=== PATIENT | male | born 1960 | race Caucasian/White ===

== ENCOUNTER → 2016-07-02 | Day surgery (SDC) | payer BC ==
[2016-06-27 11:48] VITALS: Ht 200.7 cm; Wt 104.5 kg
[~2016-07-02] VITALS: Ht 200.7 cm; Wt 104.5 kg
[~2016-07-02] MED LIST: GLYBURIDE PO; LIDOCAINE HCL 2% 2 ML VIAL (20MG/ML) ONE; LISI-729 PO; METFORMIN PO; PROPOFOL IV EMULSION 10 MG/ML 20 ML VIAL IV ONE; SODIUM CHLORIDE 0.9% 500ML 500 ML IV ONE
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
--- NOTE | 2016-07-02 14:04 | Discharge Instructions ---
Endoscopy Patient Instructions Date / Procedure(s) Performed July 02, 2016. Colonoscopy Allergy Information Coded Allergies: No Known Allergies (Verified , 06/27/16) Discharge Date / Findings July 02, 2016. Colon polyps Internal hemorrhoids Medication Instructions OK to resume all medications today as prescribed Reported Home Medications Medications Dose Route/Sig Max Daily Dose Days Date Category [Metformin] 1 Tab PO BID 06/27/16 Reported [Glyburide] 1 Tab PO BID 06/27/16 Reported Prinivil (Lisinopril) 5 Mg Tab 5 Mg PO QAM 02/01/13 Reported Provider Instructions Activity Restrictions - No exercising or heavy lifting for 24 hours. - Do not drink alcohol the day of the procedure. - Do not drive a car or operate machinery until the day after the procedure. - Do not make any important decisions or sign important papers in 24 hours after the procedure. Following Day: - Return to full activity which may include returning to work/school. Diet Start your diet with liquids and light foods (jello, soup, juice, toast). Then eat your usual diet if not nauseated. Treatment For Common After Affects For mild abdominal pain, bloating, or excessive gas: - Rest - Eat lightly - Lie on right side Follow-Up Information Follow-up with Ever Diaz as scheduled Anesthesia Information What You Should Know You have had a procedure that required some medicine to reduce anxiety and discomfort. This treatment is called moderate sedation. After receiving the treatment, you may be sleepy, but you will be able to breathe on your own. The effects of the treatment may last for several hours. Follow these instructions along with Activity/Diet recommendations noted above: * Do NOT do anything where dizziness or clumsiness would be dangerous. * Rest quietly at home today, then you can be up and about tomorrow. * Have a responsible person stay with you the rest of today. * You may have had an I.V. today. If so, you may take the dressing off later today. Recommendations Call your doctor if: * Trouble breathing * Continuous vomiting for more than 24 hours * Temperature above 101 degrees * Severe abdominal pain or bloating * Pain not relieved by pain medicine ordered * There is increased drainage or redness from any incision * A large amount of rectal bleeding greater than 2-3 tablespoons. (If you had a polyp/s removed or have hemorrhoids, a small amount of blood - from the rectum is to be expected.) * You have any unanswered questions or concerns. IN THE EVENT OF A SERIOUS EMERGENCY, GO TO THE NEAREST EMERGENCY ROOM Your discharge instructions were prepared by provider Azar Kennedy. Patient Instructions Signature Page [address] Patient (or Guardian) Signature/Date: I have read and understand the instructions given to me by my caregivers. Caregiver/RN/Doctor Signature/Date: The above-named patient and/or guardian has received patient instructions on this date. + Original Patient Signature Page (only) stays with chart. Please make copy for patient.
--- NOTE | 2016-07-02 14:07 | GI REPORT ---
Procedure Date: 07/02/2016 1:25 PM Procedure: Colonoscopy Indications: Screening for colorectal malignant neoplasm Medicines: Monitored Anesthesia Care Complications: No immediate complications. Estimated Blood Loss: Estimated blood loss: none. Procedure: Pre-Anesthesia Assessment: - Prior to the procedure, a History and Physical was performed, and patient medications and allergies were reviewed. The patient's tolerance of previous anesthesia was also reviewed. The risks and benefits of the procedure and the sedation options and risks were discussed with the patient. All questions were answered, and informed consent was obtained. Prior Anticoagulants: The patient has taken no previous anticoagulant or antiplatelet agents. ASA Grade Assessment: II - A patient with mild systemic disease. After reviewing the risks and benefits, the patient was deemed in satisfactory condition to undergo the procedure. After I obtained informed consent, the scope was passed under direct vision. Throughout the procedure, the patient's blood pressure, pulse, and oxygen saturations were monitored continuously. The Scope was introduced through the anus and advanced to the terminal ileum. The colonoscopy was performed without difficulty. The patient tolerated the procedure well. The quality of the bowel preparation was good. The terminal ileum, ileocecal valve, appendiceal orifice, and rectum were photographed. Findings: Three sessile polyps were found in the sigmoid colon and in the ascending colon. The polyps were 5 to 7 mm in size. These polyps were removed with a hot snare. Resection and retrieval were complete. Non-bleeding internal hemorrhoids were found during retroflexion. The hemorrhoids were small. Impression: - Three 5 to 7 mm polyps in the sigmoid colon and in the ascending colon, removed with a hot snare. Resected and retrieved. - Non-bleeding internal hemorrhoids. Recommendation: - Resume previous diet. - Continue present medications. - Repeat colonoscopy for surveillance based on pathology results. - Return to primary care physician as previously scheduled. Azar Kennedy DO 07/02/2016 2:06:49 PM This report has been signed electronically. Note Initiated On: 07/02/2016 1:25 PM I attest to the content of the Intraoperative Record and orders documented therein, exceptions below
[2016-07-02 14:34] VITALS: BP 134/88; PULSE 55; O2SAT 98
--- NOTE | 2016-07-02 14:52 | Anesthesiology Progress Note ---
Anesthesia Post Op Note Date & Time July 02, 2016 at 14:51 Vital Signs Pain Intensity: 0 Vital Signs Past 12 Hours Date Time Temp Pulse Resp B/P Pulse Ox O2 Delivery O2 Flow Rate FiO2 07/02/16 14:34 55 98 134/88 98 Room Air 07/02/16 14:17 55 98 134/88 98 Room Air 07/02/16 14:02 56 16 111/70 97 Room Air 07/02/16 13:15 36.7 60 20 148/95 97 Room Air Notes Mental Status: alert / awake / arousable, participated in evaluation Pt Amnestic to Procedure: Yes Nausea / Vomiting: adequately controlled Pain: adequately controlled Airway Patency, RR, SpO2: stable & adequate BP & HR: stable & adequate Hydration State: stable & adequate Anesthetic Complications: no major complications apparent
== END | disposition home or self-care (01) ==
LOC: C.GI 12:38
PROVIDERS: ATTEND Internal Medicine
DX: Z12.11 Encounter for screening for malignant neoplasm of colon (principal); D12.5 Benign neoplasm of sigmoid colon; K64.8 Other hemorrhoids; E11.9 Type 2 diabetes mellitus without complications; I10 Essential (primary) hypertension

== ENCOUNTER 2020-04-21 22:47 | Inpatient (IN) ==
[2020-04-21] MEDS ORDERED: fentaNYL citrate 100 MCG/2 ML VIAL IV STA (23:06)
[2020-04-21 23:19] LABS: Basophils # (auto) 0.02 K/uL (0-0.2); Basophils % (auto) 0.4 %; Eosinophils # (auto) 0.08 K/uL (0-0.5); Eosinophils % (auto) 1.6 %; Hematocrit (blood only) 39.4 % (42-52); Hemoglobin 13.7 g/dL (14.0-18.0); Lymphocytes # (auto) 1.38 K/uL (1.2-3.4); Lymphocytes % (auto) 27.9 %; Mean Corpuscular Hemoglobin 32.5 pg (25-34); Mean Corpuscular Hgb Conc 34.8 g/dL (32-36); Mean Corpuscular Volume 93.6 fL (80-100); Monocytes # (auto) 0.29 K/uL (0.11-0.59); Monocytes % (auto) 5.9 %; Neutrophils # (auto) 3.18 K/uL (1.4-6.5); Neutrophils % (auto) 64.2 %; Platelet Count 157 K/uL (130-400); RDW Coefficient of Variation 13.2 % (11.5-14.5); Red Blood Count 4.21 M/uL (4.7-6.1); White Blood Count 4.95 K/uL (4.8-10.8)
[2020-04-21 23:27] LABS: Albumin Level 4.1 gm/dl (3.4-5.0); BUN Creatinine Ratio 12.8 (10-20); Calcium 8.8 mg/dl (8.5-10.1); Creatinine Clr Calc Pharmacy 66.7 ml/min; Est GFR (African American) 53.8; Est GFR (Non-African American) 46.4; Potassium 4.4 mmol/L (3.5-5.1)
[2020-04-21 23:37] LABS: Albumin Globulin Ratio 1.1 (0.9-2); Bilirubin,Total 0.3 mg/dl (0.2-1); Globulin 3.8 gm/dl (2.5-4.0); Total Protein 7.9 gm/dl (6.4-8.2); Troponin I 0.278 ng/ml (0-0.045)
[2020-04-21] MEDS ORDERED: Heparin IV Adult Wt-Based Low-Dose WITH Bolus Protocol IV STA (23:39)
[2020-04-21 23:55] LABS: INR 1.2 (0.9-1.1); Prothrombin Time 11.6 Seconds (9.0-12.0)
[2020-04-22] MEDS ORDERED: HEPARIN SOD (PORCINE) 1000 UNIT/ML ONE (00:01)
[2020-04-22] MEDS: HEPARIN SODIUM/DEXTROSE 25,000 UNITS/500 ML BAG IV SCH ×2 (00:05→22:40)
--- NOTE | 2020-04-22 00:17 | Emergency Department Note ---
ED Visit Note The patient was seen and examined with Piper. I agree with the history, physical and findings. Please see the note for disposition and details. Took the call from EMS. Initial EKG from EMS at 2140 showed sinus rhythm with rate of 73. NE QRS and QTc intervals were within normal limits. There was some mild concave ST elevation in leads II, III and aVF. The patient initially was refusing to come to the hospital via EMS. I did discuss with the patient convince him to come to the hospital via EMS. I asked the medics to give the patient aspirin 324 mg. The medics provide me with the patient's name. EMR is reviewed and the patient was recently seen in the emergency department and diagnosed with a trapezius muscle strain. No EKGs were done to compare this EKG that was done by the medics to any previous EKGs. Asked medics to repeat the EKG which they did and EKG at 2200 showed sinus rhythm with rate of 68. NE QRS and QTc intervals are within normal limits. No ST elevation or ST depression. Given there is no significant ST elevation on the previous EKG, no heart alert was called. The patient was seen by PAM Saldaña and labs were drawn the patient was found to have an elevated troponin level. Patient was admitted to the hospital for NSTEMI and started on heparin drip. .
[2020-04-22] MEDS ORDERED: fentaNYL citrate 100 MCG/2 ML VIAL IV STA (00:25)
--- NOTE | 2020-04-22 00:45 | History & Physical Report ---
Date of Service April 22, 2020 Assessment & Plan (1) Acute coronary syndrome with high troponin: Acute coronary syndrome with high troponin/hypertension/abnormal EKG- The patient will be admitted to telemetry for serial cardiac enzymes, serial EKG's, cardiac rhythm monitoring and a 2-D echocardiogram with Dopplers. Initial EKG in the field showed ST elevations in the inferior leads, that did resolve quickly on follow-up EKG. Patient did not show any further EKG changes while in route or in the ED. Continue heparin drip standard protocol with bolus begun in the ED. Give Plavix 300 mg p.o. x1 per phone consult with interventionalist Dr. Leonard Hold lisinopril due to acute kidney injury Present on Admission?: Yes (2) Hypertension: See above Present on Admission?: Yes (3) Diabetes mellitus, type II: Hold glyburide Placed on Accu-Cheks before meals and at bedtime with NovoLog coverage per scale Check hemoglobin A1c and fasting lipid panel Present on Admission?: Yes (4) Cirrhosis: Normal liver enzymes upon admission. Will follow serially Present on Admission?: Yes (5) Right shoulder pain: His pain is likely orthopedic in nature. Would not pursue any additional work-up at this time, until cardiology process is completed Present on Admission?: Yes (6) Acute kidney injury: Creatinine 1.62 upon admission, with unknown baseline. Hold lisinopril. Placed on NSS 100 mils per hour after given 1 L in ED. Repeat laboratories in a.m., with hopeful improvement to be able to get a cardiac catheterization Present on Admission?: Yes (7) Abnormal EKG: See above Present on Admission?: Yes History of Present Illness Chief Complaint: The patient initially presented to the emergency department on 04/20/2020 due to right shoulder pain, was given shot of Toradol, and was taking ibuprofen as needed since that time. Over the past 24 hours, the patient had noted extension of the pain across his sternum to the left side, and EMS was called. Primary Care Provider: Ever Diaz MD The patient is a 59-year-old male with a past medical history including hypertension, diabetes mellitus, hepatitis C cured after antiviral drug therapy, liver cirrhosis, proteinuria and nephrolithiasis. 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 He has noted the extension of the pain across his sternum to left chest, for which EMS was called. EMS did perform an EKG which showed ST elevations in leads II, III and aVF, and after being convinced to come to the emergency department by the ED physician, patient was given aspirin 325 mg and brought to the ED for assessment. Repeat EKG in the field showed normal sinus rhythm and resolution of previous ST elevations inferiorly. Allergies Allergy/AdvReac Type Severity Reaction Status Date / Time No Known Allergies Allergy Verified 04/21/20 23:29 Home Medications Medication Instructions Recorded Confirmed Type lisinopril 20 mg tablet 20 mg PO DAILY #90 tab 01/13/20 04/22/20 Rx glyburide 5 mg PO BID 04/22/20 04/22/20 History metformin 850 mg PO BID 04/22/20 04/22/20 History Past Med/Surg History Medical History (Updated 04/22/20 @ 02:57 by Margarito Tanner MD) Cirrhosis Hepatitis C virus infection cured after antiviral drug therapy Nephrolithiasis Proteinuria Renal colic Surgical History History of liver biopsy Family History Father Cardiovascular disease Diabetes Hypertension Hyperlipidemia Brother Diabetes Social History Smoking Status: Former smoker Second Hand Exposure: No; Do You Dip or Chew Tobacco: No; Hx Alcohol Use: No Hx Substance Use: No Preferred Language: Wolof Communication Ability: Effective 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: No Beliefs That Will Affect Care: None Current Living Situation: Spouse Other Information That Helps Us Care for You: No Feels Safe at Home: Yes Safety Concerns: Feels Safe At This Time Assistive Devices: Denture - Upper and Glasses Review of Systems Review of Systems: The patient denies palpitations, shortness of breath, dyspnea on exertion, cough, lower extremity swelling, sore throat, fevers, chills, sweats, weight change, fatigue, nausea, vomiting, diarrhea , constipation, abdominal pain, pelvic pain, blood in urine or stool, dysuria, urinary frequency or urgency, lightheadedness, dizziness, headache, memory loss, loss of consciousness, rash, abnormal bruising or bleeding, imbalance, focal or generalized weakness, numbness or tingling in left arm or bilateral legs, generalized arthralgias or myalgias, back or neck pain, or night sweats. The review of systems is otherwise negative other than for that already noted above, and at least 10 systems have been reviewed. Physical Exam Physical Exam: The patient is awake, alert and oriented 3, well developed and well nourished, normocephalic and atraumatic, lying in bed and in no acute distress. HEENT--PERRL, EOMI, mucous membranes and oropharynx normal. Neck--supple. No JVD. No bruits. Thyroid normal, trachea midline, no adenopathy. Heart--normal S1 and S2. No murmurs, rubs or gallops. Lungs--clear bilaterally, no respiratory distress, no accessory muscle use. Abdomen--normal bowel sounds and soft. Nontender. Nondistended, no hernias or masses, no organomegaly. Extremities--no cyanosis or clubbing. No edema. Dermatologic--normal skin turgor, normal color, no abnormal lymph nodes, no rash. Neurologic--cranial nerves II through XII grossly intact. Rheumatologic--normal range of motion. Psychiatric--normal affect. Results & Data Results & Data ([facility]) Vital Signs (Past 12 Hours) Vital Signs Pulse Resp BP Pulse Ox 04/22/20 00:20 64 22 98 04/22/20 00:10 65 22 95 04/22/20 00:01 69 14 94 04/22/20 00:00 68 17 152/91 H 97 04/21/20 23:50 67 16 97 04/21/20 23:40 63 21 97 04/21/20 23:31 69 19 96 04/21/20 23:30 67 23 130/81 99 04/21/20 23:20 68 98 04/21/20 23:10 68 24 98 04/21/20 23:06 66 24 97 04/21/20 23:00 66 23 142/90 H 96 04/21/20 22:57 69 20 144/86 H 98 Laboratory Results Laboratory Results WBC 4.95 K/uL (4.8-10.8) 04/21/20 21:56 RBC 4.21 M/uL (4.7-6.1) L 04/21/20 21:56 Hgb 13.7 g/dL (14.0-18.0) L 04/21/20 21:56 Hct 39.4 % (42-52) L 04/21/20 21:56 MCV 93.6 fL (80-100) 04/21/20 21:56 MCH 32.5 pg (25-34) 04/21/20 21:56 MCHC 34.8 g/dL (32-36) 04/21/20 21:56 RDW Std Deviation 45.0 fL (36.4-46.3) 04/21/20 21:56 RDW Coeff of David 13.2 % (11.5-14.5) 04/21/20 21:56 Plt Count 157 K/uL (130-400) 04/21/20 21:56 MPV 11.0 fL (7.4-10.4) H 04/21/20 21:56 Immature Gran % (Auto) 0.0 % 04/21/20 21:56 Neut % (Auto) 64.2 % 04/21/20 21:56 Lymph % (Auto) 27.9 % 04/21/20 21:56 Bates % (Auto) 5.9 % 04/21/20 21:56 Eos % (Auto) 1.6 % 04/21/20 21:56 Baso % (Auto) 0.4 % 04/21/20 21:56 Neut # (Auto) 3.18 K/uL (1.4-6.5) 04/21/20 21:56 Lymph # (Auto) 1.38 K/uL (1.2-3.4) 04/21/20 21:56 Bates # (Auto) 0.29 K/uL (0.11-0.59) 04/21/20 21:56 Eos # (Auto) 0.08 K/uL (0-0.5) 04/21/20 21:56 Baso # (Auto) 0.02 K/uL (0-0.2) 04/21/20 21:56 Immature Gran # (Auto) 0.00 K/uL (0.00-0.02) 04/21/20 21:56 PT 11.6 Seconds (9.0-12.0) 04/21/20 21:56 INR 1.2 (0.9-1.1) H 04/21/20 21:56 Sodium 138 mmol/L (136-145) 04/21/20 21:56 Potassium 4.4 mmol/L (3.5-5.1) 04/21/20 21:56 Chloride 105 mmol/L (98-107) 04/21/20 21:56 Carbon Dioxide 29 mmol/L (21-32) 04/21/20 21:56 Anion Gap 4.0 (3-11) 04/21/20 21:56 BUN 21 mg/dl (7-18) H 04/21/20 21:56 Creatinine 1.62 mg/dl (0.6-1.4) H 04/21/20 21:56 Est Cr Clr Drug Dosing 66.7 ml/min 04/21/20 21:56 Est GFR ( Amer) 53.8 04/21/20 21:56 Est GFR (Non-Af Amer) 46.4 04/21/20 21:56 BUN/Creatinine Ratio 12.8 (10-20) 04/21/20 21:56 Glucose 144 mg/dl (70-99) H 04/21/20 21:56 Calcium 8.8 mg/dl (8.5-10.1) 04/21/20 21:56 Total Bilirubin 0.3 mg/dl (0.2-1) 04/21/20 21:56 AST 23 U/L (15-37) 04/21/20 21:56 ALT 27 U/L (12-78) 04/21/20 21:56 Alkaline Phosphatase 79 U/L (45-117) 04/21/20 21:56 Troponin I 0.278 ng/ml (0-0.045) H* 04/21/20 21:56 Total Protein 7.9 gm/dl (6.4-8.2) 04/21/20 21:56 Albumin 4.1 gm/dl (3.4-5.0) 04/21/20 21:56 Globulin 3.8 gm/dl (2.5-4.0) 04/21/20 21:56 Albumin/Globulin Ratio 1.1 (0.9-2) 04/21/20 21:56 COVID-19 Eval Order Covid19 [facility]Now [facility] 04/21/20 23:49 SARS-CoV-2, RNA, NAAT NEGATIVE (NEGATIVE) 04/21/20 23:49 Code Status & VTE Plan Code Status Full code VTE Prophylaxis Plan VTE Prophylaxis will be ordered: Yes PG Care Time/CCT Total # of Minutes Spent Total Time Spent with Patient: Total time spent is greater than 50% in coordination of care (as documented) at patient's floor/unit and/or counseling patient: Coding Level of Care Code 87684 Initial Inpt Care Lvl 3 Diagnoses Acute coronary syndrome with high troponin I24.9 Hypertension I10 Hypertension type: essential hypertension Diabetes mellitus, type II E11.9 Cirrhosis K74.60 Right shoulder pain M25.511 Acute kidney injury N17.9 Abnormal EKG R94.31 (1) Hypertension Hypertension type: essential hypertension Qualified Code(s): I10 - Essential (primary) hypertension
[2020-04-22] MEDS ORDERED: CLOPIDOGREL BISULFATE 300 MG TAB PO STA (00:55)
[2020-04-22] MEDS ORDERED: SODIUM CHLORIDE 0.9% 1000ML 1,000 ML IV ONE (00:59)
[2020-04-22] MEDS ORDERED: GLUCAGON FOR INJ 1 MG VIAL SQ PRN (01:56)
[2020-04-22] MEDS ORDERED: GLUCOSE 40% GEL 15 GM TUBE PO PRN (01:56)
[2020-04-22] MEDS ORDERED: DEXTROSE 50% 50 ML SYRINGE IV PRN (01:56)
[2020-04-22] MEDS ORDERED: GLUCOSE 10 TABS/TUBE PO PRN (01:56)
[2020-04-22] MEDS ORDERED: ACETAMINOPHEN 325 MG TAB PO PRN (01:56)
[2020-04-22] MEDS ORDERED: CARBOHYDRATES FOR HYPOGLYCEMIA PO PRN (01:56)
[2020-04-22] MEDS ORDERED: PNEUMOCOCCAL POLYSACCHARIDES 25 MCG/0.5 ML VIAL/SYR IM ONE (02:12)
[2020-04-22] MEDS ORDERED: PNEUMOCOCCAL ADMINISTRATION CHARGE ONE (02:12)
[2020-04-22] MEDS: MoRPHine SULFATE 2 MG/ML CARP IV PRN (02:19)
[2020-04-22] MEDS: SODIUM CHLORIDE 0.9% 1000ML 1,000 ML IV SCH ×3 (02:19→22:40)
[2020-04-22] MEDS: ONDANSETRON INJ 2 MG/ML 2 ML VIAL IV PRN (02:23)
--- NOTE | 2020-04-22 04:16 | Emergency Department Note ---
History of Present Illness General Chief complaint: Cardiac Assessment Stated complaint: R SHOULDER & CHEST PAIN Time Seen by Provider: 04/21/20 22:55 Source: patient Mode of arrival: EMS Limitations: no limitations History of Present Illness Maximum Pain Intensity: 7 This patient is a 59-year-old male who presents to the emergency department via EMS for evaluation of chest pain. Patient has been having issues with his right shoulder over the past few weeks. He states it has worsened over the past week. He was seen here yesterday for the shoulder pain. Patient states that tonight, he was trying to go to sleep but could not get comfortable due to his right shoulder pain. He then became very sweaty and developed shortness of breath as well as pain across his chest. He states that the pain was "excruciating" and rated his discomfort an 8/10 at its worst. He initially thought it may be due to his blood sugar and tried to drink some juice. His called 911. Patient was given nitroglycerin and aspirin. He states that the chest pain has improved after receiving the nitro. He still has right shoulder pain and rates his discomfort a 5/10. Patient is unsure whether his pain has been exertional, but does feel like the shoulder pain has been worsened with movements of the shoulder. Patient denies any history of cardiac disease. He is a diabetic and has a history of hypertension. Home Medications Medication Instructions Recorded Confirmed Type lisinopril 20 mg tablet 20 mg PO DAILY #90 tab 01/13/20 04/22/20 Rx glyburide 5 mg PO BID 04/22/20 04/22/20 History metformin 850 mg PO BID 04/22/20 04/22/20 History Allergies Allergy/AdvReac Type Severity Reaction Status Date / Time No Known Allergies Allergy Verified 04/21/20 23:29 Past Med/Surg History Medical History Cirrhosis Hepatitis C virus infection cured after antiviral drug therapy Nephrolithiasis Proteinuria Renal colic Surgical History History of liver biopsy Family History Father Cardiovascular disease Diabetes Hypertension Hyperlipidemia Brother Diabetes Social History Smoking Status: Former smoker Second Hand Exposure: No; Do You Dip or Chew Tobacco: No; Hx Alcohol Use: No Hx Substance Use: No Preferred Language: Icelandic Communication Ability: 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 Beliefs That Will Affect Care: None Current Living Situation: Spouse Other Information That Helps Us Care for You: No Feels Safe at Home: Yes Safety Concerns: Feels Safe At This Time Assistive Devices: Denture - Upper and Glasses Review of Systems A total of 10 systems reviewed and were otherwise negative Physical Exam Vital Signs Vital Signs - 24 hr 04/21/20 22:57 04/21/20 23:00 04/21/20 23:06 Pulse Rate 69 66 66 Pulse Rate from SpO2 Sensor 66 66 Respiratory Rate 20 23 24 Blood Pressure 144/86 H 142/90 H Blood Pressure Mean 105 107 Pulse Oximetry 98 96 97 Oxygen Delivery Method Room Air Sepsis Recent Fever Within 48 Hours No Sepsis New/Unexplained Change in Mental Status No Sepsis Action Taken by Nursing No Action Required 04/21/20 23:10 04/21/20 23:20 04/21/20 23:30 Pulse Rate 68 68 67 Pulse Rate from SpO2 Sensor 69 69 68 Respiratory Rate 24 23 Blood Pressure 130/81 Blood Pressure Mean 97 Pulse Oximetry 98 98 99 Oxygen Delivery Method Sepsis Recent Fever Within 48 Hours Sepsis New/Unexplained Change in Mental Status Sepsis Action Taken by Nursing 04/21/20 23:31 04/21/20 23:40 04/21/20 23:50 Pulse Rate 69 63 67 Pulse Rate from SpO2 Sensor 68 63 66 Respiratory Rate 19 21 16 Blood Pressure Blood Pressure Mean Pulse Oximetry 96 97 97 Oxygen Delivery Method Sepsis Recent Fever Within 48 Hours Sepsis New/Unexplained Change in Mental Status Sepsis Action Taken by Nursing 04/22/20 00:00 04/22/20 00:01 04/22/20 00:10 Pulse Rate 68 69 65 Pulse Rate from SpO2 Sensor 67 68 65 Respiratory Rate 17 14 22 Blood Pressure 152/91 H Blood Pressure Mean 111 Pulse Oximetry 97 94 95 Oxygen Delivery Method Sepsis Recent Fever Within 48 Hours Sepsis New/Unexplained Change in Mental Status Sepsis Action Taken by Nursing 04/22/20 00:20 04/22/20 00:30 04/22/20 00:37 Pulse Rate 64 64 67 Pulse Rate from SpO2 Sensor 63 66 Respiratory Rate 22 23 14 Blood Pressure 148/87 H Blood Pressure Mean 107 Pulse Oximetry 98 98 Oxygen Delivery Method Sepsis Recent Fever Within 48 Hours Sepsis New/Unexplained Change in Mental Status Sepsis Action Taken by Nursing 04/22/20 00:40 Pulse Rate 67 Pulse Rate from SpO2 Sensor 67 Respiratory Rate 22 Blood Pressure Blood Pressure Mean Pulse Oximetry 95 Oxygen Delivery Method Sepsis Recent Fever Within 48 Hours Sepsis New/Unexplained Change in Mental Status Sepsis Action Taken by Nursing VITALS: Vitals are noted on the nurse's note and reviewed by myself. GENERAL: This is a 59-year-old male, in no acute distress, nondiaphoretic. SKIN: The skin was without rashes. HEAD: Normocephalic atraumatic. EARS: External auditory canals clear, tympanic membranes pearly [place]rue[place] without erythema or effusion bilaterally. EYES: Pupils equal round and reactive to light and accommodation. MOUTH: Mucous membranes moist. Tonsils are not enlarged. Pharynx without erythema or exudate. NECK: Supple without nuchal rigidity. No lymphadenopathy. HEART: Regular rate and rhythm without murmurs gallops or rubs. LUNGS: Clear to auscultation bilaterally without wheezes, rales or rhonchi. No retractions or accessory muscle use. ABDOMEN: Positive bowel sounds x 4. Soft, nontender to palpation. NEURO: Patient was alert and oriented to person place and time. Course Administered Medications Heparin Sodium/Dextrose (Heparin Sodium/Dextrose) 25,000 units in 500 mls @ 20 mls/hr IV .Q24H [facility]; Protocol Stop: 05/21/20 23:44 Last Admin: 04/22/20 00:05 Dose: 1,000 units/hr, 20 mls/hr Documented by: [id number] Cosigned by: [id number] Sodium Chloride (Nss 1000ml) 1,000 mls @ 100 mls/hr IV .Q10H [facility] Stop: 05/22/20 01:55 Last Admin: 04/22/20 02:19 Dose: 100 mls/hr Documented by: [id number] Morphine Sulfate (Morphine Sulfate 2 Mg/Ml Carp) 2 mg IV Q30M PRN PRN Reason: Chest Pain Stop: 05/06/20 01:55 Last Admin: 04/22/20 02:19 Dose: 2 mg Documented by: [id number] Ondansetron HCl (Ondansetron Inj 2 Mg/Ml 2 Ml Vial) 4 mg IV Q6H PRN PRN Reason: Nausea Stop: 05/22/20 01:55 Last Admin: 04/22/20 02:23 Dose: 4 mg Documented by: [id number] Discontinued Medications Clopidogrel Bisulfate (Clopidogrel Bisulfate 300 Mg Tab) 300 mg PO NOW STA Stop: 04/22/20 00:56 Last Admin: 04/22/20 00:58 Dose: 300 mg Documented by: [id number] Fentanyl Citrate (Fentanyl Citrate 100 Mcg/2 Ml Vial) 50 mcg IV NOW STA Stop: 04/21/20 23:07 Last Admin: 04/21/20 23:11 Dose: 50 mcg Documented by: [id number] Fentanyl Citrate (Fentanyl Citrate 100 Mcg/2 Ml Vial) 50 mcg IV NOW STA Stop: 04/22/20 00:26 Last Admin: 04/22/20 00:27 Dose: 50 mcg Documented by: [id number] Heparin Sodium (Porcine) (Heparin Sod (Porcine) 1000 Unit/Ml 10 Ml Vial) Confirm Administered Dose 10,000 units .ROUTE .STK-MED ONE Stop: 04/22/20 00:02 Last Admin: 04/22/20 00:05 Dose: 4,000 units Documented by: [id number] Cosigned by: [id number] Heparin Sodium/Dextrose (Heparin Iv Low Dose With Bolus) 1 ea IV NOW STA; Protocol Stop: 04/21/20 23:40 Last Admin: 04/22/20 00:05 Dose: Not Given Documented by: [id number] Sodium Chloride (Nss 1000ml) 1,000 mls @ 999 mls/hr IV .Q1H1M ONE Stop: 04/22/20 01:59 Last Infusion: 04/22/20 02:05 Dose: 0 mls/hr Documented by: [id number] Admin: 04/22/20 01:01 Dose: 999 mls/hr Documented by: [id number] Critical Care Time Critical Care Time: Yes Total Critical Care Time: 40 I have personally spent greater than 40 minutes of critical care time in the direct management of this patient. This includes bedside care, interpretation of diagnostic studies, and testing, discussion with consultants, patient, and family members, and other required patient management activities. This 40 minutes is in excess of all separately billable procedures. Medical Decision Making Differential Diagnosis Differential diagnosis includes acute coronary syndrome, pulmonary embolism, pneumothorax, pericarditis, myocarditis, endocarditis, anxiety, musculoskeletal pain, GERD, costochondritis, pneumonia, among others. Medical Records Attestation: I reviewed the patient's medical records. Patient seen here 04/20/2020 and diagnosed with trapezius strain, given Toradol for shoulder pain. Home Medications Current Medication List: was personally reviewed by me Laboratory Data Attestation: I reviewed the patient's lab results. Result diagrams: 04/22/20 06:02 04/21/20 21:56 Lab Results 04/21/20 04/21/20 04/21/20 Range/Units 21:56 21:56 21:56 WBC 4.95 (4.8-10.8) K/uL RBC 4.21 L (4.7-6.1) M/uL Hgb 13.7 L (14.0-18.0) g/dL Hct 39.4 L (42-52) % MCV 93.6 (80-100) fL MCH 32.5 (25-34) pg MCHC 34.8 (32-36) g/dL RDW Std Deviation 45.0 (36.4-46.3) fL RDW Coeff of David 13.2 (11.5-14.5) % Plt Count 157 (130-400) K/uL MPV 11.0 H (7.4-10.4) fL Immature Gran % (Auto) 0.0 % Neut % (Auto) 64.2 % Lymph % (Auto) 27.9 % [place] % (Auto) 5.9 % Eos % (Auto) 1.6 % Baso % (Auto) 0.4 % Neut # (Auto) 3.18 (1.4-6.5) K/uL Lymph # (Auto) 1.38 (1.2-3.4) K/uL [place] # (Auto) 0.29 (0.11-0.59) K/uL Eos # (Auto) 0.08 (0-0.5) K/uL Baso # (Auto) 0.02 (0-0.2) K/uL Immature Gran # (Auto) 0.00 (0.00-0.02) K/uL PT 11.6 (9.0-12.0) Seconds INR 1.2 H (0.9-1.1) Sodium 138 (136-145) mmol/L Potassium 4.4 (3.5-5.1) mmol/L Chloride 105 (98-107) mmol/L Carbon Dioxide 29 (21-32) mmol/L Anion Gap 4.0 (3-11) BUN 21 H (7-18) mg/dl Creatinine 1.62 H (0.6-1.4) mg/dl Est Cr Clr Drug Dosing 66.7 ml/min Est GFR ( Amer) 53.8 Est GFR (Non-Af Amer) 46.4 BUN/Creatinine Ratio 12.8 (10-20) Glucose 144 H (70-99) mg/dl Calcium 8.8 (8.5-10.1) mg/dl Total Bilirubin 0.3 (0.2-1) mg/dl AST 23 (15-37) U/L ALT 27 (12-78) U/L Alkaline Phosphatase 79 (45-117) U/L Troponin I 0.278 H* (0-0.045) ng/ml Total Protein 7.9 (6.4-8.2) gm/dl Albumin 4.1 (3.4-5.0) gm/dl Globulin 3.8 (2.5-4.0) gm/dl Albumin/Globulin Ratio 1.1 (0.9-2) COVID-19 Eval Order SARS-CoV-2, RNA, NAAT (NEGATIVE) 04/21/20 04/21/20 Range/Units 23:49 23:49 WBC (4.8-10.8) K/uL RBC (4.7-6.1) M/uL Hgb (14.0-18.0) g/dL Hct (42-52) % MCV (80-100) fL MCH (25-34) pg MCHC (32-36) g/dL RDW Std Deviation (36.4-46.3) fL RDW Coeff of David (11.5-14.5) % Plt Count (130-400) K/uL MPV (7.4-10.4) fL Immature Gran % (Auto) % Neut % (Auto) % Lymph % (Auto) % [place] % (Auto) % Eos % (Auto) % Baso % (Auto) % Neut # (Auto) (1.4-6.5) K/uL Lymph # (Auto) (1.2-3.4) K/uL [place] # (Auto) (0.11-0.59) K/uL Eos # (Auto) (0-0.5) K/uL Baso # (Auto) (0-0.2) K/uL Immature Gran # (Auto) (0.00-0.02) K/uL PT (9.0-12.0) Seconds INR (0.9-1.1) Sodium (136-145) mmol/L Potassium (3.5-5.1) mmol/L Chloride (98-107) mmol/L Carbon Dioxide (21-32) mmol/L Anion Gap (3-11) BUN (7-18) mg/dl Creatinine (0.6-1.4) mg/dl Est Cr Clr Drug Dosing ml/min Est GFR ( Amer) Est GFR (Non-Af Amer) BUN/Creatinine Ratio (10-20) Glucose (70-99) mg/dl Calcium (8.5-10.1) mg/dl Total Bilirubin (0.2-1) mg/dl AST (15-37) U/L ALT (12-78) U/L Alkaline Phosphatase (45-117) U/L Troponin I (0-0.045) ng/ml Total Protein (6.4-8.2) gm/dl Albumin (3.4-5.0) gm/dl Globulin (2.5-4.0) gm/dl Albumin/Globulin Ratio (0.9-2) COVID-19 Eval Order Covid19 [facility] SARS-CoV-2, RNA, NAAT NEGATIVE (NEGATIVE) Imaging Data Attestation: I personally reviewed and interpreted this imaging study as follows: My Impression: CHEST 1 VIEW: No pulmonary consolidation or pneumothorax. Normal cardiac silhouette. ECG Data Attestation: I personally reviewed and interpreted this ECG as follows: Indication: + chest pain Rate (beats per minute): 67 Rhythm: + normal sinus ECG Intervals/blocks: + First degree AV block ECG ST segments: + ST depression (slight depressions V4, V5, V6) and + T-wave inversions (Inferior) Comparison ECG Date: no prior available Additional Comments: Prehospital EKG was reviewed which shows concave ST elevations in leads II, III and aVF. MDM Narrative Continuous threat monitoring analyst: Order was placed for continuous threat monitoring analyst. Patient was placed on the threat monitoring analyst. Patient was noted to be in normal sinus rhythm at an initial rate of 70 bpm. The patient is a 59-year-old male who presents today complaining of chest pain and shoulder pain. Patient has been having shoulder pain for a while but had an acute onset of chest pain this evening. One prehospital EKG did show ST elevations in the inferior leads, however this was repeated shortly afterward and did not show ST elevations, so a heart alert was not called. On arrival here, patient has T wave inversions in the inferior leads, no ST elevations. His pain is much better after receiving nitroglycerin. He does have some residual right shoulder pain and was given fentanyl for this. Initial troponin was found to be elevated at 0.278. The patient was started on heparin and case was discussed with the [facility]. The case was also discussed with Dr. Leonard, the ironing machine operator who recommended loading the patient with Plavix and continuing heparin. Impression & Plan ACS (acute coronary syndrome), Elevated troponin Discharge Plan Visit Data Chief Complaint: Cardiac Assessment Stated Complaint: R SHOULDER & CHEST PAIN ED Provider: Pernell Sheehan ED Midlevel Provider: Paige Saldaña Discharge Problem: ACS (acute coronary syndrome), Elevated troponin Patient Disposition: Admitted As Inpatient Discharge Instructions Interventions: ED Discharge Assessment Last Done: 04/22/20 01:24
[2020-04-22 06:23] LABS: Basophils # (auto) 0.02 K/uL (0-0.2); Basophils % (auto) 0.4 %; Eosinophils # (auto) 0.09 K/uL (0-0.5); Eosinophils % (auto) 1.8 %; Hematocrit (blood only) 35.4 % (42-52); Hemoglobin 12.2 g/dL (14.0-18.0); Immature Granulocytes # (auto) 0.01 K/uL (0.00-0.02); Immature Granulocytes % (auto) 0.2 %; Lymphocytes # (auto) 1.37 K/uL (1.2-3.4); Lymphocytes % (auto) 27.8 %; Mean Corpuscular Hemoglobin 31.4 pg (25-34); Mean Corpuscular Hgb Conc 34.5 g/dL (32-36); Mean Corpuscular Volume 91.2 fL (80-100); Mean Platelet Volume 10.5 fL (7.4-10.4); Monocytes # (auto) 0.31 K/uL (0.11-0.59); Monocytes % (auto) 6.3 %; Neutrophils # (auto) 3.12 K/uL (1.4-6.5); Neutrophils % (auto) 63.5 %; Platelet Count 138 K/uL (130-400); RDW Coefficient of Variation 13.1 % (11.5-14.5); RDW Standard Deviation 43.4 fL (36.4-46.3); Red Blood Count 3.88 M/uL (4.7-6.1); White Blood Count 4.92 K/uL (4.8-10.8)
[2020-04-22 06:48] LABS: Partial Thromboplastin Ratio 1.5; Partial Thromboplastin Time 39.8 Seconds (21.0-31.0)
[2020-04-22 06:53] LABS: Albumin Level 3.5 gm/dl (3.4-5.0); BUN Creatinine Ratio 17.9 (10-20); Calcium 8.1 mg/dl (8.5-10.1); Creatinine Clr Calc Pharmacy 100.9 ml/min; Est GFR (African American) 88.8; Est GFR (Non-African American) 76.7; Potassium 4.4 mmol/L (3.5-5.1)
[2020-04-22 07:10] LABS: Troponin I 3.25 ng/ml (0-0.045)
[2020-04-22] MEDS: INSULIN ASPART 100 UNITS/ML 3 ML PEN SC SCH ×4 (07:40→20:33)
[2020-04-22] MEDS: ASPIRIN 81 MG ECTAB PO SCH (07:41)
--- NOTE | 2020-04-22 08:34 | XRay Report ---
XR chest 1V portable CLINICAL HISTORY: Chest Pain COMPARISON STUDY: No previous studies for comparison. FINDINGS: Lung volumes are normal. Lungs are clear. There is no pneumothorax or pleural effusion. Car diac size is normal. Mediastinal contours are normal. There is no evidence for pulmonary edema. IMPRESSION: No acute cardiopulmonary findings. ACT 112: Negative or not required by law. Electronically signed by: Yehuda Skaggs M.D. 04/22/2020 8:33 AM
--- NOTE | 2020-04-22 09:17 | Cardiology Consultation ---
Date of Consultation April 22, 2020 Assessment & Plan (1) NSTEMI (non-ST elevated myocardial infarction): He has risk factors for coronary disease in his presentation is consistent with an acute coronary syndrome. His symptoms as well as elevated biomarkers suggest the same. His symptoms appear to have resolved. He does have a degree of "achiness" which I do not believe represents ongoing ischemia. Biomarkers are actually trending downwards. EKG is currently unremarkable. Was started on heparin. We discussed options for evaluation. I recommended coronary angiography. We discussed the alternative which would be medical therapy. I described the risks and benefits of cardiac catheterization and he is agreeable. We will plan on proceeding tomorrow in the absence of worsening symptoms. (2) Diabetes mellitus, type II: We will need to hold his Metformin. We will provide hydration overnight to lessen his risk of contrast nephropathy. History of Present Illness Reason for Consultation: Chest pain, elevated troponin Requesting Physician: Iwona Attending Physician: Tong Morales MD History of Present Illness The patient is a 59-year-old gentleman without a known history of cardiac disease who has been experiencing some symptoms of chest discomfort for a few days. 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 He has had right shoulder discomfort for many years neck she presented for an evaluation of worsening right shoulder discomfort 2 days ago. Additionally, the patient states that he has had some form of discomfort in his chest intermittently for several days this week. Generally speaking he does not have symptoms of this nature. Yesterday evening the patient developed severe discomfort in the precordial area. This was associated with nausea and diaphoresis. He also appeared to have an element of tachypnea noticed by his who contacted an ambulance. Initially the patient was resistant to come to the hospital and there was some concern about acute ST segment changes at the time of his initial evaluation. However, he was brought to the hospital where an EKG did not demonstrate ST segment changes. His symptoms had improved by that time. Patient states that he is an active individual who generally does not have limiting symptoms. He has had right shoulder discomfort for many years after an accident playing football. He is not limited by dyspnea. He did not endorse symptoms of dizziness or lightheadedness. He has not suffered syncope. Has not been aware of any palpitations. This morning he states that he feels "achy" in general. His severe discomfort in the precordium has resolved. He has some very mild pleuritic discomfort with deep inspiration. No pain on palpation. Allergies Allergy/AdvReac Type Severity Reaction Status Date / Time No Known Allergies Allergy Verified 04/21/20 23:29 Home Medications Medication Instructions Recorded Confirmed Type lisinopril 20 mg tablet 20 mg PO DAILY #90 tab 01/13/20 04/22/20 Rx glyburide 5 mg PO BID 04/22/20 04/22/20 History metformin 850 mg PO BID 04/22/20 04/22/20 History Patient History Medical History Cirrhosis Hepatitis C virus infection cured after antiviral drug therapy Nephrolithiasis Proteinuria Renal colic Surgical History History of liver biopsy Family History Father Cardiovascular disease Diabetes Hypertension Hyperlipidemia Brother Diabetes Social History Smoking Status: Former smoker Second Hand Exposure: No; Do You Dip or Chew Tobacco: No; Hx Alcohol Use: No Hx Substance Use: No Preferred Language: Maori Communication Ability: Effective Compressed Gas Tester Required: No Beliefs That Will Affect Care: None Current Living Situation: Spouse Other Information That Helps Us Care for You: No Feels Safe at Home: Yes Safety Concerns: Feels Safe At This Time Assistive Devices: None Review of Systems Review of Systems: All systems reviewed & are unremarkable except as noted in HPI & below No recent constitutional symptoms such as fevers or chills. No lower extremity edema. Physical Exam Physical Exam: The patient is alert and oriented. Mood and affect appeared normal. He answered all questions appropriately. HEENT: Pupils are equal and reactive to light and accommodation. Extraocular movements are intact. The sclerae are anicteric. Neuro: Cranial nerves intact Neck: Patient's neck is supple. He has palpable carotid pulses bilaterally without bruits on auscultation. There is no evidence of jugular venous distention. The thyroid is not enlarged. Lungs: Clear to auscultation bilaterally. He has good air movement without use of accessory muscles. No rales wheezes or rhonchi. Cardiac: Heart demonstrates a regular rate and rhythm. Normal S1 and S2. No murmurs on examination. Pulses: The patient has palpable radial pulses bilaterally that are equal in intensity Extremities: There was no evidence of hypoperfusion. There is no cyanosis or clubbing. There is no edema. Skin: I did not appreciate any rashes on examination today. Atrial fibrillation Results & Data ([facility]) Vital Signs (Past 12 Hours) Vital Signs Temp Pulse Pulse Resp BP BP Pulse Ox 04/22/20 08:01 66 04/22/20 07:15 36.6 C 63 18 132/87 96 04/22/20 04:00 36.7 C 58 L 18 142/86 H 98 04/22/20 02:00 99 04/22/20 01:59 36.5 C 65 16 158/76 H 99 04/22/20 01:56 04/22/20 01:10 63 19 95 04/22/20 01:00 62 20 113/72 96 04/22/20 00:50 66 18 93 04/22/20 00:40 67 22 95 04/22/20 00:37 67 14 98 04/22/20 00:30 64 23 148/87 H 04/22/20 00:20 64 22 98 04/22/20 00:10 65 22 95 04/22/20 00:01 69 14 94 04/22/20 00:00 68 17 152/91 H 97 04/21/20 23:50 67 16 97 04/21/20 23:40 63 21 97 04/21/20 23:31 69 19 96 04/21/20 23:30 67 23 130/81 99 04/21/20 23:20 68 98 04/21/20 23:10 68 24 98 04/21/20 23:06 66 24 97 04/21/20 23:00 66 23 142/90 H 96 04/21/20 22:57 69 20 144/86 H 98 Pulse Ox 04/22/20 08:01 04/22/20 07:15 04/22/20 04:00 04/22/20 02:00 04/22/20 01:59 04/22/20 01:56 99 04/22/20 01:10 04/22/20 01:00 04/22/20 00:50 04/22/20 00:40 04/22/20 00:37 04/22/20 00:30 04/22/20 00:20 04/22/20 00:10 04/22/20 00:01 04/22/20 00:00 04/21/20 23:50 04/21/20 23:40 04/21/20 23:31 04/21/20 23:30 04/21/20 23:20 04/21/20 23:10 04/21/20 23:06 04/21/20 23:00 04/21/20 22:57 Laboratory Results Abnormal Lab Results 04/21/20 04/21/20 04/21/20 21:56 21:56 21:56 WBC 4.95 RBC 4.21 L Hgb 13.7 L Hct 39.4 L MCV 93.6 MCH 32.5 MCHC 34.8 RDW Std Deviation 45.0 RDW Coeff of David 13.2 Plt Count 157 MPV 11.0 H Immature Gran % (Auto) 0.0 Neut % (Auto) 64.2 Lymph % (Auto) 27.9 [place] % (Auto) 5.9 Eos % (Auto) 1.6 Baso % (Auto) 0.4 Neut # (Auto) 3.18 Lymph # (Auto) 1.38 [place] # (Auto) 0.29 Eos # (Auto) 0.08 Baso # (Auto) 0.02 Immature Gran # (Auto) 0.00 PT 11.6 INR 1.2 H APTT PTT Ratio Sodium 138 Potassium 4.4 Chloride 105 Carbon Dioxide 29 Anion Gap 4.0 BUN 21 H Creatinine 1.62 H Est Cr Clr Drug Dosing 66.7 Est GFR ( Amer) 53.8 Est GFR (Non-Af Amer) 46.4 BUN/Creatinine Ratio 12.8 Glucose 144 H POC Glucose Calcium 8.8 Phosphorus Total Bilirubin 0.3 AST 23 ALT 27 Alkaline Phosphatase 79 Troponin I 0.278 H* Total Protein 7.9 Albumin 4.1 Globulin 3.8 Albumin/Globulin Ratio 1.1 COVID-19 Eval Order SARS-CoV-2, RNA, NAAT 04/21/20 04/21/20 04/22/20 23:49 23:49 06:02 WBC 4.92 RBC 3.88 L Hgb 12.2 L Hct 35.4 L MCV 91.2 MCH 31.4 MCHC 34.5 RDW Std Deviation 43.4 RDW Coeff of David 13.1 Plt Count 138 MPV 10.5 H Immature Gran % (Auto) 0.2 Neut % (Auto) 63.5 Lymph % (Auto) 27.8 [place] % (Auto) 6.3 Eos % (Auto) 1.8 Baso % (Auto) 0.4 Neut # (Auto) 3.12 Lymph # (Auto) 1.37 [place] # (Auto) 0.31 Eos # (Auto) 0.09 Baso # (Auto) 0.02 Immature Gran # (Auto) 0.01 PT INR APTT PTT Ratio Sodium Potassium Chloride Carbon Dioxide Anion Gap BUN Creatinine Est Cr Clr Drug Dosing Est GFR ( Amer) Est GFR (Non-Af Amer) BUN/Creatinine Ratio Glucose POC Glucose Calcium Phosphorus Total Bilirubin AST ALT Alkaline Phosphatase Troponin I Total Protein Albumin Globulin Albumin/Globulin Ratio [facility], RNA, NAAT NEGATIVE 04/22/20 04/22/20 04/22/20 06:02 06:02 06:21 WBC RBC Hgb Hct MCV MCH MCHC RDW Std Deviation RDW Coeff of David Plt Count MPV Immature Gran % (Auto) Neut % (Auto) Lymph % (Auto) [place] % (Auto) Eos % (Auto) Baso % (Auto) Neut # (Auto) Lymph # (Auto) [place] # (Auto) Eos # (Auto) Baso # (Auto) Immature Gran # (Auto) PT INR APTT 39.8 H PTT Ratio 1.5 Sodium 142 Potassium 4.4 Chloride 113 H Carbon Dioxide 23 Anion Gap 6.0 BUN 19 H Creatinine 1.07 Est Cr Clr Drug Dosing 100.9 Est GFR ( Amer) 88.8 Est GFR (Non-Af Amer) 76.7 BUN/Creatinine Ratio 17.9 Glucose 111 H POC Glucose 101 H Calcium 8.1 L Phosphorus 3.0 Total Bilirubin AST ALT Alkaline Phosphatase Troponin I 3.250 H* Total Protein Albumin 3.5 Globulin Albumin/Globulin Ratio COVID-19 Eval Order SARS-CoV-2, RNA, NAAT PG Care Time/CCT Total # of Minutes Spent Total Time Spent with Patient: Total time spent is greater than 50% in coordination of care (as documented) at patient's floor/unit and/or counseling patient: Coding Level of Care Code 87397 Inpt Consult Level 4 Diagnoses NSTEMI (non-ST elevated myocardial infarction) I21.4 Diabetes mellitus, type II E11.9
[2020-04-22] MEDS: METOPROLOL TARTRATE 25 MG TAB PO SCH ×2 (09:54→20:20)
[2020-04-22] MEDS: CLOPIDOGREL BISULFATE 75 MG TAB PO SCH (09:55)
--- NOTE | 2020-04-22 11:21 | History & Physical Bridge Note ---
Date of Service April 22, 2020 History & Physical Bridge Note Seen today. Some "chest pressure", but none of the pain that brought him in. Elevated troponin with cardiology recommending a cath. - Continue medical therapy - NPO @ midnight.
[2020-04-22 13:10] LABS: Partial Thromboplastin Ratio 1.5; Partial Thromboplastin Time 38.7 Seconds (21.0-31.0)
--- NOTE | 2020-04-22 13:16 | Electrocardiogram Report ---
Test Reason : Blood Pressure : / mmHG Vent. Rate : 067 BPM Atrial Rate : 067 BPM P-R Int : 304 ms QRS Dur : 104 ms QT Int : 430 ms P-R-T Axes : 066 049 -20 degrees QTc Int : 454 ms Sinus rhythm with 1st degree A-V block Nonspecific ST abnormality Poor R wave progression, consider anterior NV vs. lead placement vs. LVH Abnormal ECG No previous ECGs available Confirmed by Jose Armando Boyle ([id number]) on 04/22/2020 1:15:47 PM Referred By: REFERRED SELF Confirmed By:Octavio Boyle
--- NOTE | 2020-04-22 15:33 | XCELERA ---
[id number]
[2020-04-22] MEDS: lisinopril 10 MG TAB PO SCH (16:51)
[2020-04-22 20:39] LABS: Partial Thromboplastin Ratio 1.5; Partial Thromboplastin Time 39.2 Seconds (21.0-31.0)
[2020-04-23] MEDS: ONDANSETRON INJ 2 MG/ML 2 ML VIAL IV PRN (03:25)
[2020-04-23] MEDS: MoRPHine SULFATE 2 MG/ML CARP IV PRN (03:25)
[2020-04-23 03:47] LABS: Basophils # (auto) 0.01 K/uL (0-0.2); Basophils % (auto) 0.2 %; Eosinophils # (auto) 0.08 K/uL (0-0.5); Eosinophils % (auto) 1.4 %; Hematocrit (blood only) 36.9 % (42-52); Hemoglobin 12.8 g/dL (14.0-18.0); Lymphocytes # (auto) 0.95 K/uL (1.2-3.4); Lymphocytes % (auto) 16.2 %; Mean Corpuscular Hemoglobin 31.9 pg (25-34); Mean Corpuscular Hgb Conc 34.7 g/dL (32-36); Mean Platelet Volume 10.7 fL (7.4-10.4); Monocytes # (auto) 0.39 K/uL (0.11-0.59); Monocytes % (auto) 6.7 %; Neutrophils # (auto) 4.42 K/uL (1.4-6.5); Neutrophils % (auto) 75.5 %; Platelet Count 132 K/uL (130-400); RDW Coefficient of Variation 12.8 % (11.5-14.5); RDW Standard Deviation 43.7 fL (36.4-46.3); Red Blood Count 4.01 M/uL (4.7-6.1); White Blood Count 5.85 K/uL (4.8-10.8)
[2020-04-23] MEDS ORDERED: NITROGLYCERIN SL 0.4 MG/TAB TAB SL STA (03:49)
--- NOTE | 2020-04-23 03:55 | Communication Note ---
Date of Service: April 23, 2020 Subjective: Nursing messaged that patient had chest pain. He initially had 7/10 pressure like someone was sitting on his chest. He did not feel this was as bad as when he initially came to the hospital. He had improvement in his pain after receiving Morphine 3/10. Troponin was elevated > 5 and then down trended. Objective: Pt. anxious RRR no m/r/g on PE EKG similar to prior with 1st degree block and t wave inversions in inferior leads II, II, AVF A/P: - recheck troponin - SL Nitro ordered - will continue to follow pain Resident Activity Tracking Resident Involvement: Resident Care Provided Care Provided: Adult [facility] Medicine CBC Results Results Complete Blood Count Results: RBC 4.01 M/uL (4.7-6.1) L 04/23/20 WBC 5.85 K/uL (4.8-10.8) 04/23/20 Hgb 12.8 g/dL (14.0-18.0) L 04/23/20 Hct 36.9 % (42-52) L 04/23/20 Plt Count 132 K/uL (130-400) 04/23/20 Chemistry (BMP) Results BMP Results: Sodium 142 mmol/L (136-145) 04/22/20 Potassium 4.4 mmol/L (3.5-5.1) 04/22/20 Chloride 113 mmol/L (98-107) H 04/22/20 BUN 19 mg/dl (7-18) H 04/22/20 Creatinine 1.07 mg/dl (0.6-1.4) 04/22/20 Glucose 111 mg/dl (70-99) H 04/22/20
[2020-04-23 03:57] LABS: Partial Thromboplastin Ratio 1.6; Partial Thromboplastin Time 42.7 Seconds (21.0-31.0)
[2020-04-23 04:16] LABS: Albumin Level 3.5 gm/dl (3.4-5.0); BUN Creatinine Ratio 10.2 (10-20); Calcium 8.4 mg/dl (8.5-10.1); Creatinine Clr Calc Pharmacy 101.9 ml/min; Est GFR (African American) 89.9; Est GFR (Non-African American) 77.5; Magnesium 2.1 mg/dl (1.8-2.4); Potassium 4.1 mmol/L (3.5-5.1)
[2020-04-23 04:18] LABS: Phosphorus 2.1 mg/dl (2.5-4.9); Troponin I 3.02 ng/ml (0-0.045)
[2020-04-23 05:53] LABS: Estimated Average Glucose 105 mg/dl; Hemoglobin A1C 5.3 % (4.5-5.6)
[2020-04-23] MEDS: CLOPIDOGREL BISULFATE 75 MG TAB PO SCH (07:35)
[2020-04-23] MEDS: ASPIRIN 81 MG ECTAB PO SCH (07:35)
[2020-04-23] MEDS: METOPROLOL TARTRATE 25 MG TAB PO SCH ×2 (07:36→19:45)
[2020-04-23] MEDS: lisinopril 10 MG TAB PO SCH (07:38)
[2020-04-23] MEDS: SODIUM CHLORIDE 0.9% 1000ML 1,000 ML IV SCH ×2 (07:41→21:34)
[2020-04-23] MEDS: INSULIN ASPART 100 UNITS/ML 3 ML PEN SC SCH ×4 (07:45→20:49)
--- NOTE | 2020-04-23 08:00 | Hospitalist Progress Note ---
Date of Service April 23, 2020 Assessment & Plan (1) Acute coronary syndrome with high troponin: Acute coronary syndrome with high troponin/hypertension/abnormal EKG- Troponin 0.27->3.25->5.8->5.0->3.0 2-D echocardiogram shows mildly reduced LV function and RWMA Initial EKG in the field showed ST elevations in the inferior leads, that did resolve quickly on follow-up EKG. CP in am 04/23 ECG with 1st degree block and t wave inversions in inferior leads II, II, AVF Heart catheterization on 04/23/2020 Dominant circumflex with 95% mid stenosis at bifurcation with large OM 2 Successful PCI of mid circumflex with single drug-eluting stent (3.0 x 15 mm Yusef; postdilated with 3.75 NC). (2) Hypertension: See above (3) Diabetes mellitus, type II: Holding glyburide Placed on Accu-Cheks before meals and at bedtime with NovoLog coverage per scale hemoglobin A1c 5.3 (4) Cirrhosis: Normal liver enzymes upon admission. Will follow serially (5) Right shoulder pain: His pain is likely orthopedic in nature. Would not pursue any additional work-up at this time, (6) Acute kidney injury: Creatinine 1.62 upon admission, improved with hydration and holding lisinopril, now 1.06 (7) Abnormal EKG: See above Admission and Anticipated Discharge Date Admission Date: April 22, 2020 Subjective Patient was seen post cardiac catheterization he is complaining of some mild left distal hand pain distal to the T band he is in the process of having an deflated. He has no further chest pain he has good sensation and capillary refill to his fingertips Review of Systems Review of Systems: Mild distress and fatigue no headache, blurry or double vision no speech or swallowing issues no chest pain, pressure or palpitations no shortness of breath, cough or wheezes no abdominal pain, nausea or vomiting, diarrhea or constipation no dysuria, hematuria or frequency Distal left hand pain no back pain, CVA tenderness or radicular pain no bruising, bleeding or rashes no focal signs of weakness or numbness or altered sensation no complaints of anxiety or depression.. Physical Exam Physical Exam: The patient appeared well nourished and normally developed. Vital signs as documented. Head exam is normocephalic atraumatic no scleral icterus Neck is without JVD, thyromegaly, or carotid bruits. Lungs are clear to auscultation, no focal loss of breath sounds Cardiac exam, Rhythm is regular.. No murmurs, rubs or gallops. Abdominal exam reveals normal bowel sounds, soft non tender, no masses Extremities are nonedematous and both pedal pulses are present Right hand is mildly swollen he has good capillary refill and sensation of his distal hand he does have some minor pain. It is not appear to be in dermatomal distribution Neurologic exam is alert and oriented, no focal loss of strength or sensation Skin is without bruises or rashes Psychologically is without concerns for anxiety or depression Results & Data Results & Data ([facility]) Vital Signs (Past 12 Hours) Vital Signs Temp Pulse Resp BP Pulse Ox Pulse Ox 04/23/20 07:29 98.2 F 71 19 161/84 H 97 04/23/20 04:15 71 04/23/20 03:19 99.0 F 96 H 18 163/86 H 96 04/23/20 01:56 97 04/22/20 23:43 98.6 F 67 18 146/74 H 97 PG Care Time/CCT Total # of Minutes Spent Total Time Spent with Patient: Total time spent is greater than 50% in coordination of care (as documented) at patient's floor/unit and/or counseling patient: Coding Level of Care Code 20611 Subseq Hosp Care Lvl 3 Diagnoses Acute coronary syndrome with high troponin I24.9 Hypertension I10 Hypertension type: essential hypertension Diabetes mellitus, type II E11.9 Cirrhosis K74.60 Right shoulder pain M25.511 Acute kidney injury N17.9 Abnormal EKG R94.31 (1) Hypertension Hypertension type: essential hypertension Qualified Code(s): I10 - Essential (primary) hypertension
--- NOTE | 2020-04-23 08:22 | Electrocardiogram Report ---
Test Reason : Blood Pressure : / mmHG Vent. Rate : 072 BPM Atrial Rate : 072 BPM P-R Int : 310 ms QRS Dur : 104 ms QT Int : 416 ms P-R-T Axes : 062 034 -40 degrees QTc Int : 455 ms Poor data quality, interpretation may be adversely affected Sinus rhythm with 1st degree A-V block Abnormal ECG When compared with ECG of 22-APR-2020 16:21, (unconfirmed) No significant change was found Confirmed by Jose Armando Boyle ([id number]) on 04/23/2020 8:21:34 AM Referred By: REFERRED SELF Confirmed By:Octavio Boyle
--- NOTE | 2020-04-23 08:24 | Electrocardiogram Report ---
Test Reason : Blood Pressure : / mmHG Vent. Rate : 061 BPM Atrial Rate : 061 BPM P-R Int : 322 ms QRS Dur : 110 ms QT Int : 442 ms P-R-T Axes : 070 030 -36 degrees QTc Int : 444 ms Sinus rhythm with 1st degree A-V block Nonspecific ST and T wave abnormality Abnormal ECG When compared with ECG of 21-APR-2020 22:53, No significant change was found Confirmed by Jose Armando Boyle ([id number]) on 04/23/2020 8:23:47 AM Referred By: REFERRED SELF Confirmed By:Octavio Boyle
--- NOTE | 2020-04-23 08:26 | Electrocardiogram Report ---
Test Reason : Blood Pressure : / mmHG Vent. Rate : 070 BPM Atrial Rate : 070 BPM P-R Int : 302 ms QRS Dur : 106 ms QT Int : 426 ms P-R-T Axes : 063 009 -55 degrees QTc Int : 460 ms Sinus rhythm with 1st degree A-V block Abnormal ECG When compared with ECG of 23-APR-2020 03:22, (unconfirmed) Nonspecific T wave abnormality now evident in Lateral leads Confirmed by Jose Armando Boyle ([id number]) on 04/23/2020 8:26:22 AM Referred By: REFERRED SELF Confirmed By:Octavio Boyle
--- NOTE | 2020-04-23 09:40 | Cardiology Progress Note ---
Date of Service April 23, 2020 Assessment & Plan (1) NSTEMI (non-ST elevated myocardial infarction): Biomarkers trending downwards. Continues to have some abdominal and chest discomfort which is not likely ischemic in etiology. Presenting symptoms have resolved. Continue his heparin, Plavix, aspirin, metoprolol, lisinopril and begin atorvastatin (2) Diabetes mellitus, type II: Hydrated overnight. Continue to hold metformin. (3) Mitral regurgitation: Admission and Anticipated Discharge Date Admission Date: April 22, 2020 Subjective This morning the patient claims to be tired. He continued to have a vague sense of abdominal and chest discomfort. However, this is not severe and not similar to his presenting symptoms. No current breathing difficulty. Review of Systems Review of Systems: Per HPI Physical Exam Physical Exam: The patient is alert and oriented. Mood and affect appeared normal. He answered all questions appropriately. HEENT: Pupils are equal and reactive to light and accommodation. Extraocular movements are intact. The sclerae are anicteric. Neuro: Cranial nerves intact Lungs: Clear to auscultation bilaterally. He has good air movement without use of accessory muscles. No rales wheezes or rhonchi. Cardiac: Heart demonstrates a regular rhythm and normal rate. Pulses: The patient has palpable radial pulses bilaterally that are equal in intensity Extremities: There was no evidence of hypoperfusion. There is no cyanosis or clubbing. There is no edema. Skin: I did not appreciate any rashes on examination today. Results & Data ([facility]) Vital Signs (Past 12 Hours) Vital Signs Temp Pulse Resp BP Pulse Ox Pulse Ox 04/23/20 07:29 36.8 C 71 19 161/84 H 97 04/23/20 04:15 71 04/23/20 03:19 37.2 C 96 H 18 163/86 H 96 04/23/20 01:56 97 04/22/20 23:43 37 C 67 18 146/74 H 97 Laboratory Results Abnormal Lab Results 04/22/20 04/22/20 04/22/20 06:02 11:08 12:51 WBC RBC Hgb Hct MCV MCH MCHC RDW Std Deviation RDW Coeff of David Plt Count MPV Immature Gran % (Auto) Neut % (Auto) Lymph % (Auto) [place] % (Auto) Eos % (Auto) Baso % (Auto) Neut # (Auto) Lymph # (Auto) [place] # (Auto) Eos # (Auto) Baso # (Auto) Immature Gran # (Auto) APTT PTT Ratio Sodium Potassium Chloride Carbon Dioxide Anion Gap BUN Creatinine Est Cr Clr Drug Dosing Est GFR ( Amer) Est GFR (Non-Af Amer) BUN/Creatinine Ratio Glucose POC Glucose 111 H Estimat Average Glucose 105 Hemoglobin A1c 5.3 Calcium Phosphorus Magnesium Troponin I 5.840 H* Albumin 04/22/20 04/22/20 04/22/20 12:51 15:59 20:11 WBC RBC Hgb Hct MCV MCH MCHC RDW Std Deviation RDW Coeff of David Plt Count MPV Immature Gran % (Auto) Neut % (Auto) Lymph % (Auto) [place] % (Auto) Eos % (Auto) Baso % (Auto) Neut # (Auto) Lymph # (Auto) [place] # (Auto) Eos # (Auto) Baso # (Auto) Immature Gran # (Auto) APTT 38.7 H PTT Ratio 1.5 Sodium Potassium Chloride Carbon Dioxide Anion Gap BUN Creatinine Est Cr Clr Drug Dosing Est GFR ( Amer) Est GFR (Non-Af Amer) BUN/Creatinine Ratio Glucose POC Glucose 88 122 H Estimat Average Glucose Hemoglobin A1c Calcium Phosphorus Magnesium Troponin I Albumin 04/22/20 04/22/20 04/23/20 20:17 20:17 03:33 WBC 5.85 RBC 4.01 L Hgb 12.8 L Hct 36.9 L MCV 92.0 MCH 31.9 MCHC 34.7 RDW Std Deviation 43.7 RDW Coeff of David 12.8 Plt Count 132 MPV 10.7 H Immature Gran % (Auto) 0.0 Neut % (Auto) 75.5 Lymph % (Auto) 16.2 [place] % (Auto) 6.7 Eos % (Auto) 1.4 Baso % (Auto) 0.2 Neut # (Auto) 4.42 Lymph # (Auto) 0.95 L [place] # (Auto) 0.39 Eos # (Auto) 0.08 Baso # (Auto) 0.01 Immature Gran # (Auto) 0.00 APTT 39.2 H PTT Ratio 1.5 Sodium Potassium Chloride Carbon Dioxide Anion Gap BUN Creatinine Est Cr Clr Drug Dosing Est GFR ( Amer) Est GFR (Non-Af Amer) BUN/Creatinine Ratio Glucose POC Glucose Estimat Average Glucose Hemoglobin A1c Calcium Phosphorus Magnesium Troponin I 5.050 H* Albumin 04/23/20 04/23/20 04/23/20 03:33 03:33 07:41 WBC RBC Hgb Hct MCV MCH MCHC RDW Std Deviation RDW Coeff of David Plt Count MPV Immature Gran % (Auto) Neut % (Auto) Lymph % (Auto) [place] % (Auto) Eos % (Auto) Baso % (Auto) Neut # (Auto) Lymph # (Auto) [place] # (Auto) Eos # (Auto) Baso # (Auto) Immature Gran # (Auto) APTT 42.7 H PTT Ratio 1.6 Sodium 143 Potassium 4.1 Chloride 112 H Carbon Dioxide 23 Anion Gap 8.0 BUN 11 Creatinine 1.06 Est Cr Clr Drug Dosing 101.9 Est GFR ( Amer) 89.9 Est GFR (Non-Af Amer) 77.5 BUN/Creatinine Ratio 10.2 Glucose 134 H POC Glucose 127 H Estimat Average Glucose Hemoglobin A1c Calcium 8.4 L Phosphorus 2.1 L Magnesium 2.1 Troponin I 3.020 H* Albumin 3.5 Diagnostic Findings Echocardiogram performed yesterday revealed mildly reduced LV systolic function with regional wall motion abnormalities. Mild mitral regurgitation. PG Care Time/CCT Total # of Minutes Spent Total Time Spent with Patient: Total time spent is greater than 50% in coordination of care (as documented) at patient's floor/unit and/or counseling patient: Coding Level of Care Code 49109 Subseq Hosp Care Lvl 2 Diagnoses NSTEMI (non-ST elevated myocardial infarction) I21.4 Diabetes mellitus, type II E11.9 Mitral regurgitation I34.0
[2020-04-23] MEDS ORDERED: ASPIRIN 81 MG CHEW PO SCH (09:45)
--- NOTE | 2020-04-23 10:37 | Pre Anesthesia Assessment ---
Date of Service April 23, 2020 Pre Sedation Assessment Vital Signs Temp Pulse Pulse Resp BP Pulse Ox Pulse Ox 04/23/20 07:29 36.8 C 71 19 161/84 H 97 04/23/20 04:15 71 04/23/20 03:19 37.2 C 96 H 18 163/86 H 96 04/23/20 01:56 97 04/22/20 23:43 37 C 67 18 146/74 H 97 04/22/20 19:47 36.7 C 65 20 162/94 H 98 04/22/20 18:11 60 04/22/20 15:29 36.9 C 64 18 149/85 H 95 04/22/20 11:30 36.5 C 84 20 112/65 94 04/22/20 11:10 36.7 C 57 L 20 147/84 H 98 Cardiovascular + regular rate Respiratory + respiratory effort normal Pre-Sedation Airway Assessment Smoking Status: Former smoker Hx Sleep Apnea: No Hx Difficult Intubation: No Short, Thick Neck: Yes Thyromental Distance: > or= 3.5 Finger Breadths Oral Cavity: + Dentures Mallampati Class: II ASA: ASA3 NPO Status Date of Last Intake of Fluids: 04/22/20 Time of Last Intake of Fluids: 18:00 Date of Last Intake of Solid Food: 04/22/20 Time of Last Intake of Solid Foods: 18:00 Procedure Planning Contraindications for Sedation: none Current Medications Reviewed: Yes Notes The planned sedation has been discussed with the patient. Informed Consent was obtained. I have identified the patient, determined the appropriateness of sedation and have assessed the patient immediately prior to the procedure. All medicine(s) and interventions are by my order.
[2020-04-23 10:50] LABS: Partial Thromboplastin Ratio 1.8
[2020-04-23] MEDS ORDERED: MIDAZOLAM HCL 1 MG/ML 2ML VIAL ONE ×2 (11:04→11:56)
[2020-04-23] MEDS ORDERED: fentaNYL citrate 100 MCG/2 ML VIAL ONE (11:04)
[2020-04-23] MEDS ORDERED: HEPARIN (PORCINE) 1000 UNIT/ML 10 ML (CATH LAB USE ONLY) ONE ×2 (11:04→12:19)
[2020-04-23] MEDS ORDERED: NITROGLYCERIN/D5W 100MCG/ML 20ML SYR ONE (11:04)
[2020-04-23] MEDS ORDERED: niCARdipine HCL INJ 2.5 MG/ML 10 ML AMP ONE (11:04)
[2020-04-23 11:06] LABS: Partial Thromboplastin Time 47.8 Seconds (21.0-31.0)
--- NOTE | 2020-04-23 12:06 | Cardiac Catheterization ---
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 Cardiac Status Clinical evaluation leading to the procedure CAD Presenation: Non STEMI Diagnostic Physicians Name: Jose Armando Boyle MD Closure Device Recommendations: PCI without planned CABG Cardiac Cath Procedure Full Procedure Date April 23, 2020 Pre-Procedure Diagnosis Pre-Procedure Diagnosis: Non STEMI AUC Score AUC Score: 8 Post-Procedure Diagnosis Post-Procedure Diagnosis: Severe CAD Procedure(s) Performed Procedure(s) Performed: Coronary Angiography and Left Heart Cath Assembler Jose Armando Boyle MD Firmware Architect(s) none Estimated Blood Loss Estimated Blood Loss: 10cc Medication(s) Medication(s): Fentanyl, Heparin, Lidocaine 1%, Nicardipine, Nitroglycerin and Versed Summary of Findings Procedure performed: Left heart catheterization, selective coronary angiography Staff air launch weapons technician: Jose Armando Boyle MD Indication: The patient is a 59-year-old gentleman presented with symptoms of chest discomfort and objective evidence ischemia including elevated biomarkers. He is advised to undergo coronary angiography for evaluation. Procedure detail: The patient was informed the risks benefits and alternatives to the intended procedure. He understood which proceed. He was taken to the cardiac catheterization suite in a fasting state. Conscious sedation was administered per protocol the patient was monitored electrocardiographically throughout today's procedure. The left radial area was prepped and draped in usual sterile fashion. The area over the left radial artery was anesthetized using subcutaneous menstruation of lidocaine solution. The left radial artery subsequently accessed using Seldinger technique and sheath was placed over guidewire at this site. The sheath was used facilitate passage of the cardiac catheters for selective coronary angiography and left heart catheterization. Images were obtained in multiple orthogonal views. Upon completion of this portion the procedure the catheters were removed. The patient tolerated procedure well. There were no immediate complications. Equipment used: Five [place] tiger 4 [place] 3D Coronary angiography Left main: Left main was normal in size and caliber and bifurcated normally into the left anterior descending and left circumflex arteries. Left anterior descending: Left anterior descending was large transapical vessel. There was a small 1st diagonal branch with approximately 50% stenosis in its ostium. There were 2 additional diagonal branches. No significant disease in the remainder of this vessel. Left circumflex: Left circumflex was large dominant vessel. It had a 99% stenosis just prior to the bifurcation of a large OM branch and ongoing circumflex vessel. Right coronary: Right coronary was a nondominant vessel. Was small with some luminal irregularities. Impression: Left dominant coronary system 99% stenosis of the mid circumflex Normal left ventricular filling pressures No evidence of aortic stenosis Plan: Immediate percutaneous intervention involving the left circumflex artery Hemodynamics Rest Ao:: 135/73 mm of mercury Final Ao: 150/74 mm of mercury LV: 129/4 mmHg left ventricular end-diastolic pressure was 14 mm of mercury Recommendations Recommendations: PCI without planned CABG Radiation Exposure (mGy) One thousand three hundred twenty Contrast (mls) Fifty-five I attest to the content of the Intraoperative Record and any orders documented therein. Any exceptions are noted below. [facility] Card Cath Procedure Codes Cardiac Catheterization Procedure 1: Cardiovascular Cath Procedures: 34565 Coronaries and LHC (+/-LV) Moderate Sedation Procedure 1: Sedation/Anesthesia: 64734 Mod Sedation by the same physician;Init15 Min Child Age 5 & Up PG Care Time/CCT Total # of Minutes Spent Total Time Spent with Patient: Total time spent is greater than 50% in coordination of care (as documented) at patient's floor/unit and/or counseling patient:
[2020-04-23] MEDS ORDERED: CLOPIDOGREL BISULFATE 300 MG TAB ONE (12:24)
--- NOTE | 2020-04-23 12:38 | Post Anesthesia Assessment ---
Date of Service April 23, 2020 Post Sedation Assessment Vital Signs Temp Pulse Pulse Resp BP Pulse Ox Pulse Ox 04/23/20 07:29 98.2 F 71 19 161/84 H 97 04/23/20 04:15 71 04/23/20 03:19 99.0 F 96 H 18 163/86 H 96 04/23/20 01:56 97 04/22/20 23:43 98.6 F 67 18 146/74 H 97 04/22/20 19:47 98.1 F 65 20 162/94 H 98 04/22/20 18:11 60 04/22/20 15:29 98.4 F 64 18 149/85 H 95 Recovery Score Activity: Moves 4 extremities Respiration: Deep Breath/Cough Circulation: +/-20% PreAnes Value Consciousness: Fully Awake Oxygen Saturation: O2 needed for >90% Discharge Sedation Level of Care: Fast Track Phase II Post Sedation Plan On clinical assessment, the patient appears to have tolerated the sedation without complications. Patient is recovering as anticipated. Patient will continue to be monitored by nursing and may be discharged when sedation discharge criteria are met per below protocol. Upon Completions of procedure up to 15 minutes continue every 5 minute vital signs and the P.A.R. score; then discharge to a Phase I or Fast Track to Phase II per the following guidelines: * Discharge Patient to appropriate Phase II area if PAR is 8 or greater or return to pre- procedure baseline. The post - procedure orders will be as directed. * If PAR score is less than 8 or not return to pre-procedure baseline then patient will follow Phase I monitoring till PAR is reached for Phase II. The Phase I may be done in procedure room or may call to secure a Phase I area. * If naloxone or flumazenil are used for reversal, hold in Phase I for con tinued monitoring from when last reversal dose was given for a minimum of 60 minutes or longer pending the nurse and/or physician discretion of patient condition before discharge to Phase II. Please call the Sedation Physician to re-evaluate and complete post-note for discharge to Phase II area. Do NOT discharge from procedure sedation or Phase 1 until post- sedation evaluation note is complete by procedure /sedation MD Sedation Discharge Instructions to be given to the patient at discharge to home.
--- NOTE | 2020-04-23 12:53 | Cardiac Catheterization ---
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 Cardiac Status Clinical evaluation leading to the procedure CAD Presenation: Non STEMI Anginal Classification: CCS IV Heart Failure: No Cardiogenic Shock within 24 Hours: No Cardiac Arrest within 24 Hours: No Imaging Studies Past 6 Months: Yes Stress Studies Past 6 Months: No Diagnostic Physicians Name: Jose Armando Leonard MD Status: Elective Closure Device Percutaneous Entry Location: Radial Closure Device: Radial Band Recommendations: PCI without planned CABG PCI Indication: PCI for high risk Non-MAURI Lesion Segment Name: Mid circumflex Culprit Artery: Yes Stenosis Prior to Rx (%): 99 Chronic Total Occlusion: No IVUS: No FFR: No Pre-Procedure [place] Flow: 3 Previously Treated Lesion: No Lesion Complexity: Non-High/Non-C Lesion Length (mm): 12 Thrombus Present: No Bifurcation Lesion: Yes Guidewire Across Lesion: Stenosis Post-Procedure (%): 0 Post-Procedure [place]D Flow: 3 Devices(s) Deployed: Yes Yes Intraprocedure Events Significant Disection: No Perforation: No Cardiac Cath Procedure Full Procedure Date April 23, 2020 Pre-Procedure Diagnosis Pre-Procedure Diagnosis: Non STEMI AUC Score AUC Score: 8 Post-Procedure Diagnosis Post-Procedure Diagnosis: Severe CAD and Successful PCI Procedure(s) Performed Procedure(s) Performed: Drug Eluting Stent Group Dynamics Instructor Jose Armando Leonard MD Buggy Man(s) none Estimated Blood Loss Estimated Blood Loss: 10cc Medication(s) Medication(s): Fentanyl, Heparin, Lidocaine 1%, Nicardipine, Nitroglycerin and Versed Summary of Findings Indication: NSTEMI Access: 6F left radial artery Catheters: EBU 3.5 guide Findings: For full details of patient's coronary angiography please see cath report dictated by Dr. Boyle. Briefly, patient found to have severe single vessel disease with a 95% mid circumflex stenosis at the bifurcation of a large OM 2. Decision to proceed with PCI. -- PCI -- Antithrombotic therapy: Heparin, clopidogrel Procedure: Left main cannulated with EBU 3.5 guide BMW wire passed across lesion into distal vessel Prowater wire placed into large OM 2 Mid circumflex lesion predilated with 2.5 compliant balloon Dilated lesion stented with 3.0 x 15 mm [place] drug-eluting stent Stent post-dilated with 3.75 noncompliant balloon IC vasodilators administered for spasm Post procedure RICH[place]D 3 flow, stent well expanded with minimal residual stenosis and no apparent cardiac complications. Arterial Closure: TR band Summary: 1. Dominant circumflex with 95% mid stenosis at bifurcation with large OM 2 2. Successful PCI of mid circumflex with single drug-eluting stent (3.0 x 15 mm Yusef; postdilated with 3.75 NC). Recommendations: To PCU for continued monitoring Reloaded with clopidogrel 300 mg in Import Manager Continue dual-antiplatelet therapy for at least 1 year Consult cardiac Rehab Hemodynamics Rest Ao:: 150/74/112 Final Ao: 137/72/101 LV: 129/14 Recommendations Recommendations: PCI without planned CABG Specimens Specimens: None Radiation Exposure (mGy) 3413 Contrast (mls) 145 Fluids (cc crystalloids) Fluids (cc crystalloids): 115 Drains Drains: None Anesthesia Moderate Procedural Complication(s) None Disposition PCU I attest to the content of the Intraoperative Record and any orders documented therein. Any exceptions are noted below. [facility] Card Cath Procedure Codes Moderate Sedation Procedure 1: Sedation/Anesthesia: 39356 Mod Sedation by the same physician; Ea [id number] Minutes Stenting Procedure 1: Cardiovascular Stent Procedures: 78968 Perc transcatheter placement of intracoronary stent(s), with ang PG Care Time/CCT Total # of Minutes Spent Total Time Spent with Patient: Total time spent is greater than 50% in coordination of care (as documented) at patient's floor/unit and/or counseling patient:
[2020-04-23] MEDS: ATORVASTATIN 40 MG TAB PO SCH (15:34)
[2020-04-24 06:10] LABS: Basophils # (auto) 0.02 K/uL (0-0.2); Basophils % (auto) 0.4 %; Eosinophils # (auto) 0.08 K/uL (0-0.5); Eosinophils % (auto) 1.6 %; Hematocrit (blood only) 36.9 % (42-52); Hemoglobin 12.9 g/dL (14.0-18.0); Immature Granulocytes # (auto) 0.01 K/uL (0.00-0.02); Immature Granulocytes % (auto) 0.2 %; Lymphocytes # (auto) 0.83 K/uL (1.2-3.4); Lymphocytes % (auto) 16.8 %; Mean Corpuscular Hemoglobin 31.7 pg (25-34); Mean Corpuscular Volume 90.7 fL (80-100); Mean Platelet Volume 10.1 fL (7.4-10.4); Monocytes # (auto) 0.48 K/uL (0.11-0.59); Monocytes % (auto) 9.7 %; Neutrophils # (auto) 3.52 K/uL (1.4-6.5); Neutrophils % (auto) 71.3 %; Platelet Count 130 K/uL (130-400); RDW Coefficient of Variation 12.7 % (11.5-14.5); RDW Standard Deviation 42.4 fL (36.4-46.3); Red Blood Count 4.07 M/uL (4.7-6.1); White Blood Count 4.94 K/uL (4.8-10.8)
[2020-04-24 06:36] LABS: Albumin Level 3.3 gm/dl (3.4-5.0); BUN Creatinine Ratio 10.8 (10-20); Calcium 8.3 mg/dl (8.5-10.1); Est GFR (African American) 96.4; Est GFR (Non-African American) 83.2; Phosphorus 2.4 mg/dl (2.5-4.9)
[2020-04-24] MEDS: SODIUM CHLORIDE 0.9% 1000ML 1,000 ML IV SCH (08:20)
[2020-04-24] MEDS: INSULIN ASPART 100 UNITS/ML 3 ML PEN SC SCH (08:22)
[2020-04-24] MEDS: ASPIRIN 81 MG ECTAB PO SCH (08:23)
[2020-04-24] MEDS: ATORVASTATIN 40 MG TAB PO SCH (08:23)
[2020-04-24] MEDS: METOPROLOL TARTRATE 25 MG TAB PO SCH (08:23)
[2020-04-24] MEDS: CLOPIDOGREL BISULFATE 75 MG TAB PO SCH (08:24)
[2020-04-24] MEDS: lisinopril 10 MG TAB PO SCH (08:24)
[2020-04-24] MEDS ORDERED: lisinopril 10 MG TAB PO ONE (08:28)
--- NOTE | 2020-04-24 11:11 | Cardiology Progress Note ---
Date of Service April 24, 2020 Assessment & Plan (1) NSTEMI (non-ST elevated myocardial infarction): Percutaneous intervention to the left circumflex yesterday. Nonobstructive disease in the remaining vessels. I think he would be safe for discharge. He should continue dual anti-platelet therapy with Plavix and aspirin. We will continue him on lisinopril 20 mg daily. His metoprolol tartrate can be transition to metoprolol succinate, 25 mg daily. He can resume his metformin on April 26. I will arrange for follow-up in my clinic in the next 2-4 weeks. (2) Diabetes mellitus, type II: May resume metformin on 04/26/2020 (3) Mitral regurgitation: Admission and Anticipated Discharge Date Admission Date: April 22, 2020 Subjective This morning the patient claims to be feeling well. His headache and chest discomfort have resolved. He has also had resolution of his right shoulder discomfort. He has been ambulatory to the commode without additional symptoms. No breathing difficulty. No pain at 30 left radial access site. Review of Systems Review of Systems: Per HPI Physical Exam Physical Exam: The patient is alert and oriented. Mood and affect appeared normal. He answered all questions appropriately. HEENT: Pupils are equal and reactive to light and accommodation. Extraocular movements are intact. The sclerae are anicteric. Neuro: Cranial nerves intact Lungs: Clear to auscultation bilaterally. He has good air movement without use of accessory muscles. No rales wheezes or rhonchi. Cardiac: Heart demonstrates a regular rhythm and normal rate. Pulses: The right radial access site has a palpable radial pulse. Right hand is warm. Good perfusion. Extremities: There was no evidence of hypoperfusion. There is no cyanosis or clubbing. There is no edema. Skin: I did not appreciate any rashes on examination today. Results & Data ([facility]) Vital Signs (Past 12 Hours) Vital Signs Temp Pulse Pulse Resp BP BP Pulse Ox 04/24/20 10:56 36.5 C 62 17 173/87 H 98 04/24/20 09:53 66 04/24/20 07:24 36.5 C 62 17 158/98 H 173/87 H 98 04/24/20 03:17 36.7 C 67 18 167/79 H 97 04/24/20 00:15 36.7 C 61 18 154/83 H 97 04/23/20 23:46 62 Laboratory Results Abnormal Lab Results 04/23/20 04/23/20 04/23/20 11:51 12:16 16:14 WBC RBC Hgb Hct MCV MCH MCHC RDW Std Deviation RDW Coeff of David Plt Count MPV Immature Gran % (Auto) Neut % (Auto) Lymph % (Auto) Oliver % (Auto) Eos % (Auto) Baso % (Auto) Neut # (Auto) Lymph # (Auto) Oliver # (Auto) Eos # (Auto) Baso # (Auto) Immature Gran # (Auto) Activ Coag Time Kaolin 175 H 219 H Sodium Potassium Chloride Carbon Dioxide Anion Gap BUN Creatinine Est Cr Clr Drug Dosing Est GFR ( Amer) Est GFR (Non-Af Amer) BUN/Creatinine Ratio Glucose POC Glucose 133 H Calcium Phosphorus Magnesium Albumin 04/23/20 04/24/20 04/24/20 20:36 05:48 05:48 WBC 4.94 RBC 4.07 L Hgb 12.9 L Hct 36.9 L MCV 90.7 MCH 31.7 MCHC 35.0 RDW Std Deviation 42.4 RDW Coeff of David 12.7 Plt Count 130 MPV 10.1 Immature Gran % (Auto) 0.2 Neut % (Auto) 71.3 Lymph % (Auto) 16.8 Oliver % (Auto) 9.7 Eos % (Auto) 1.6 Baso % (Auto) 0.4 Neut # (Auto) 3.52 Lymph # (Auto) 0.83 L Oliver # (Auto) 0.48 Eos # (Auto) 0.08 Baso # (Auto) 0.02 Immature Gran # (Auto) 0.01 Activ Coag Time Kaolin Sodium 140 Potassium 4.0 Chloride 112 H Carbon Dioxide 21 Anion Gap 7.0 BUN 11 Creatinine 1.00 Est Cr Clr Drug Dosing 108.0 Est GFR ( Amer) 96.4 Est GFR (Non-Af Amer) 83.2 BUN/Creatinine Ratio 10.8 Glucose 119 H POC Glucose 124 H Calcium 8.3 L Phosphorus 2.4 L Magnesium 2.0 Albumin 3.3 L 04/24/20 07:39 WBC RBC Hgb Hct MCV MCH MCHC RDW Std Deviation RDW Coeff of David Plt Count MPV Immature Gran % (Auto) Neut % (Auto) Lymph % (Auto) Oliver % (Auto) Eos % (Auto) Baso % (Auto) Neut # (Auto) Lymph # (Auto) Oliver # (Auto) Eos # (Auto) Baso # (Auto) Immature Gran # (Auto) Activ Coag Time Kaolin Sodium Potassium Chloride Carbon Dioxide Anion Gap BUN Creatinine Est Cr Clr Drug Dosing Est GFR ( Amer) Est GFR (Non-Af Amer) BUN/Creatinine Ratio Glucose POC Glucose 127 H Calcium Phosphorus Magnesium Albumin Diagnostic Findings Cardiac catheterization performed yesterday revealed stenosis involving the left circumflex. He underwent successful percutaneous intervention. Nonobstructive disease in the remaining vessels. PG Care Time/CCT Total # of Minutes Spent Total Time Spent with Patient: Total time spent is greater than 50% in coordination of care (as documented) at patient's floor/unit and/or counseling patient: Coding Level of Care Code 52466 Subseq Hosp Care Lvl 2 Diagnoses NSTEMI (non-ST elevated myocardial infarction) I21.4 Diabetes mellitus, type II E11.9 Mitral regurgitation I34.0
--- NOTE | 2020-04-24 16:51 | Electrocardiogram Report ---
Test Reason : Blood Pressure : / mmHG Vent. Rate : 067 BPM Atrial Rate : 067 BPM P-R Int : 296 ms QRS Dur : 106 ms QT Int : 438 ms P-R-T Axes : 077 029 -66 degrees QTc Int : 462 ms Sinus rhythm with 1st degree A-V block Abnormal ECG When compared with ECG of 23-APR-2020 06:57, Nonspecific T wave abnormality no longer evident in Lateral leads Confirmed by Jose Armando Boyle ([id number]) on 04/24/2020 4:51:04 PM Referred By: REFERRED SELF Confirmed By:Octavio Boyle
--- NOTE | 2020-04-24 18:36 | Discharge Summary ---
Date of Service April 24, 2020 Admission HPI Per Admitting Provider The patient is a 59-year-old male with a past medical history including hypertension, diabetes mellitus, hepatitis C cured after antiviral drug therapy, liver cirrhosis, proteinuria and nephrolithiasis. 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 He has noted the extension of the pain across his sternum to left chest, for which EMS was called. EMS did perform an EKG which showed ST elevations in leads II, III and aVF, and after being convinced to come to the emergency department by the ED physician, patient was given aspirin 325 mg and brought to the ED for assessmen t. Repeat EKG in the field showed normal sinus rhythm and resolution of previous ST elevations inferiorly. Principal Diagnosis NSTEMI Coronary artery disease with circumflex stent placed Discharge Exam The patient appeared well Vital signs as documented. Lungs are clear to auscultation and appear unlabored Cardiac exam, Rhythm is regular.. No murmurs, rubs or gallops. Abdominal exam reveals normal bowel sounds, soft non tender, no masses Extremities are nonedematous and both pedal pulses are normal left wrist access site is clean dry and intact. Neurologic exam is alert and oriented, no focal loss of strength or sensation Skin is without bruises or rashes Psychologically is without concerns for anxiety or depression. Discharge Data Allergies Allergy/AdvReac Type Severity Reaction Status Date / Time No Known Allergies Allergy Verified 04/21/20 23:29 Consultations 04/21/20 23:52 ED Decision to Admit Stat 04/22/20 01:56 Consult Cardiology Routine Consult Case Management - Discharge Planning Routine 04/23/20 12:54 Consult Cardiac Rehabilitation Routine Procedures Performed Operation Date: 04/23/20 11:00 Actual Procedures p Cath, Left with Cors and Vent - Olvin Boyle MD s Cineradiography w/Routine Exam - Olvin Leonard MD s Drug Eluting Stent SGl Vessel - Olvin Leonard MD Ordered Studies 04/23/20 11:11 CL Cath Imgs for PACS use only Routine Hospital Course (1) Acute coronary syndrome with high troponin: Acute coronary syndrome with high troponin/hypertension/abnormal EKG- Troponin 0.27->3.25->5.8->5.0->3.0 2-D echocardiogram shows mildly reduced LV function and RWMA Initial EKG in the field showed ST elevations in the inferior leads, that did resolve quickly on follow-up EKG. CP in am 04/23 ECG with 1st degree block and t wave inversions in inferior leads II, II, AVF Heart catheterization on 04/23/2020 Dominant circumflex with 95% mid stenosis at bifurcation with large OM 2 Successful PCI of mid circumflex with single drug-eluting stent (3.0 x 15 mm [place]; postdilated with 3.75 NC). (2) Hypertension: Patient's heart was slightly slowed during his hospital stay subsequently we elected to remain on the tartrate 12.5 twice daily not transitioning to succinate until his recurrent post hospital visit with cardiology to best understand if he is tolerant of a beta-juliane (3) Diabetes mellitus, type II: Resume glyburide hemoglobin A1c 5.3 (4) Cirrhosis: Normal liver enzymes upon admission. Recommend outpatient follow-up (5) Right shoulder pain: His pain is likely orthopedic in nature. Would not pursue any additional work-up at this time, (6) Acute kidney injury: Creatinine 1.62 upon admission, improved with hydration and holding lisinopril, now 1.06 (7) Abnormal EKG: See above Total Time Total Time Spent Total Time Spent (In Minutes): It required greater than 30 minutes to prepare this patient for discharge Discharge Plan Discharge Items Patient Disposition: Home - Self-Care Reason For Visit: ELEVATED TROPONIN Discharge Diagnosis: nSTEMI coronary stent in circumflex artery Activity: Per Instructions section Activity Comment: slowly increase activity Non-emergency contact: Primary Care Provider and Environmental Engineering Assistant Call non-emergency contact if: you have any medication questions and your symptoms worsen Follow-up/Referrals: Olvin Boyle MD [Physician] - 05/15/20 9:30 am (Please follow up with Dr. Boyle on Thursday05/15/20 at 9:30 am. Please arrive to the office at 9:15 am for your appointment. If you are unable to keep this appointment, please call the office to reschedule at [phone].) Aby Mansfield [Primary Care Provider] - 04/30/20 11:10 am (Please follow up with Dr. Mansfield on Thursday04/30/20 at 11:10 am. Please arrive to the office at 10:55 am for your appointment. If you are unable to keep this appointment, please call the office to reschedule at [phone].) Diet: Carb Consistent or DM2 and Heart Healthy Addtl Attending Provider Instructions: Please take all your prescribed medications until you are instructed otherwise by your primary care or cardiology provider Do not restart your metformin until the evening of 04/25/20 ACTIVITY RECOMMENDATIONS: Excess manipulation of the wrist should be avoided for the next 24-48 hours. * No lifting over 2 pounds (approximately a 1/2 gallon of milk) with the utilized arm for 24 hours. * No strenuous activity such as bowling or tennis for 3 days. * Keep the site of the procedure covered with a bandage for 24 hours. *You may shower the day after the procedure. Do not take a tub bath or submerge the puncture site in water for the next 3 days. *Do not operate any motorized equipment for 3 days. SPECIAL CARE INSTRUCTIONS: The site may be slightly bruised and sore following your procedure. Should any of the following occur, contact the Dr. who performed your procedure. 1. Redness/inflammation, swelling, chills, or fever, or colored drainage at procedure site within 3-7 days after your procedure. 2. Coldness, discoloration, ongoing numbness, severe pain, or swelling. Expect mild tingling of hand and tenderness at the puncture site for up to three days. If this persists beyond three days, or other symptoms develop, notify the Dr. who performed your procedure. BLEEDING: If the procedure site on your wrist begins to bleed, do not panic 1. Place 1 or 2 fingers firmly just slightly above the insertion site to stop the bleeding. You may be able to feel your pulse as you hold pressure. 2. Lift your finger after 5 minutes to see if the bleeding has stopped. 3. Once the bleeding has stopped, gently wipe the wrist area clean with a bandage. * If the bleeding from your wrist does not stop after 10 minutes, or if there is a large amount of bleeding or spurting, call 911 ([address] drive yourself to the hospital). SKIN IRRITATION: * You may experience some redness and/or swelling in the area where radiation was administered. If any skin irritation occurs, please contact your family physician. FOLLOW UP VISIT: Keep any scheduled doctor appointments. Pending Studies at Discharge: No Stand-Alone Forms: My [facility] [employer], Smoking Cessation Medications and DC Order Prescriptions: New atorvastatin 40 mg Tablet 80 mg PO QAM Qty: 30 RF: 5 clopidogrel 75 mg Tablet 75 mg PO QAM Qty: 30 RF: 5 aspirin 81 mg Tablet,Delayed Release (Dr/Ec) 81 mg PO QAM Qty: 30 RF: 5 metoprolol tartrate 25 mg Tablet 12.5 mg PO BID Qty: 30 RF: 3 Continued lisinopril 20 mg tablet 20 mg PO DAILY Qty: 90 RF: 3 glyburide 5 mg tablet 5 mg PO BID RF: 0 metformin 850 mg tablet 850 mg PO BID RF: 0 Discharge Orders: Discharge Order (Routine); Ordered 04/24/20 Ordered By: Unruly Richmond/Other Patient Handouts: Symptoms of a Heart Attack, Low-Salt Choices, Exercise for a Healthier Heart, Identifying Your Heart Risks, Heart Attack: Back at Home, Eating Heart-Healthy Foods Admission Data Admit Date/Time: 04/22/20 00:44 Attending Provider: Unruly Rossi Admit Provider: Margarito Tanner Primary Care Provider: Aby Mansfield Other Providers: Olvin Boyle ; Tong Morales Other Interventions: Discharge Summary Assessment (RN) Last Done: 04/24/20 11:42 Coding Level of Care Code D/C Day Management >30 mins Diagnoses Acute coronary syndrome with high troponin I24.9 Hypertension I10 Hypertension type: essential hypertension Diabetes mellitus, type II E11.9 Cirrhosis K74.60 Right shoulder pain M25.511 Acute kidney injury N17.9 Abnormal EKG R94.31
[2020-04-25] MEDS ORDERED: lisinopril 20 MG TAB PO SCH (09:00)
== END 2020-04-24 12:13 | disposition home or self-care (01) | DRG 247 ==
LOC: ED 22:47 → 2E 04-22 00:44 → SUATTDRO 04-22 00:44 → 2E 04-22 01:24